=== PATIENT | male | born 1965 | race Caucasian/White ===

== ENCOUNTER 2022-08-29 11:41 | Emergency (ER) | payer MEDICAID, SELFPAY ==
[2022-08-29 11:46] VITALS: BP 210/142; PULSE 98; RESP 16; TEMP 36.8; O2SAT 97
--- NOTE | 2022-08-29 11:57 | ED_ITS ---
HPI - General Adult General: Chief complaint: General Medical Stated complaint: MHE Time Seen by Provider: 08/29/22 11:51 Source: patient Mode of arrival: ambulatory Limitations: no limitations History of Present Illness: See nursing assessment. Patient states that he is seeking drug treatment program for methamphetamine abuse. Patient states has been using methamphetamine for the past 30 years. He states he used this morning. States he has a past medical history of atrial fibrillation and anxiety. He states he takes no routine medications. States he does smoke cigarettes and uses methamphetamine. Denies alcohol or other drug use. Reportedly he is scheduled to go to skilled nursing on Tuesday if he is not in a drug treatment program. Patient denies any chest pain or shortness of breath. He denies any other problems. Associated symptoms: Deny chest pain, dyspnea, headache(s), nausea, rash, palpitations or vomiting Review of Systems Const: Denies: fever(s) or chills Eyes: Denies: change in vision ENMT: Denies: throat pain Card: Denies: chest pain or palpitations Resp: Denies: dyspnea or wheezing GI: Denies: abdominal pain, nausea or vomiting : Denies: flank pain Musc: Denies: neck pain or back pain Skin/Breast: Denies: rash or pruritus Neuro: Denies: headache(s) or numbness in extremities Psych: Reports: anxiety; Denies: depression Fabricio/Lymph: Denies: enlarged lymph nodes PFSH ED Supplemental PFS Information: See history above Physical Exam Const: COMMON NORMALS: no acute distress, patient oriented x3, no limitations and well nourished GENERAL APPEARANCE: cooperative HENMT: COMMON NORMALS: normocephalic and atraumatic HEAD & SCALP: nor mocephalic and atraumatic FACE & SINUS: normal facial exam Eye: COMMON NORMALS: EOMs intact bilaterally Neck/C-Spine: COMMON NORMALS: full ROM, no lymphadenopathy, supple and no meningeal signs GENERAL: Yes normal visual inspection Lymph: LYMPHATIC: no lymphadenopathy noted Chest: COMMONS NORMALS: normal inspection of the chest and normal palpation of entire chest wall CHEST: No Ecchymosis present and No rash Resp: COMMON NORMALS: normal respiratory effort, No retractions and clear to auscultation bilaterally EFFORT & INSPECTION: No respiratory distress AUSCULTATION: clear to auscultation bilaterally Cardio: COMMON NORMALS: regular rate, regular rhythm and Peripheral pulses 2+ throughout JUGULAR VENOUS DISTENTION: no JVD RATE: regular rate RHYTHM: regular rhythm PERIPHERAL PULSES: Peripheral pulses 2+ throughout GI: COMMON NORMALS: Normal to inspection, nondistended, normoactive bowel sounds present and non-tender : COMMON NORMALS: Yes no CVA tenderness BLADDER/KIDNEY EXAM: Yes no CVA tenderness Back/Pelvis: COMMON NORMALS: no CVA tenderness Extremity: COMMON NORMALS: normal to inspection, full ROM and capillary refill normal Neuro: COMMON NORMALS: patient oriented x3, CN's II-XII intact bilaterally, no focal motor deficits and no sensory deficits noted MENINGEAL SIGNS: Yes no meningeal signs Psych: COMMON NORMALS: mental status grossly normal and Normal thought process present THOUGHT PROCESS: Normal thought process present Skin: COMMON NORMALS: no rashes or lesions noted and no wounds GENERAL SKIN EXAM: no rashes or lesions noted Course Vital Signs: Vital signs: Vital Signs Temperature 98.2 F 08/29/22 11:46 Pulse Rate 98 08/29/22 11:46 Respiratory Rate 16 08/29/22 11:46 Blood Pressure 218/147 08/29/22 12:09 Pulse Oximetry 97 08/29/22 11:46 MDM - General Adult Medical Decision Making Methamphetamine abuse; patient used meth amphetamine this morning already. Spoke with nursing personnel. No drug treatment programs available on the weekend. There is a drug treatment program in [facility] called [facility] that patient will have to arrange treatment by himself. 1210: Blood pressure still high at 218/147. Will treat with IV antihypertensive medication. 1225: Nurse stated patient refused IV stick. He did refuse lab draw. I went and discussed with the patient that his blood pressure is dangerously high. He requires IV antihypertensive medication to help prevent stroke or heart attack. Patient states he does not care and he refuses IV. He is open to getting oral medication. I stated this would be insufficient, but since he refuses IV this is the only option we have at this point. EKG Data EKG 1: I personally reviewed and interpreted this EKG as follows: EKG interpretation date: 08/29/22 EKG interpretation time: 12:03 Prior EKG tracings: not available for review Interpretation: Impression sinus tachycardia with LVH. Heart rate 93. [place]. Normal [place] interval, normal QT interval. Normal P waves, normal T waves. Normal ST segment. Discharge Plan Discharge Patient Disposition: Home Clinical Impression: Hypertensive urgency, Methamphetamine addiction Condition: Stable Prescriptions: New labetalol 200 mg tablet 200 mg PO Q12H Qty: 60 1RF Rx Instructions: For hypertension Discharge Orders: Discharge ED (Routine); Ordered 08/29/22 Ordered By: Jaswant Maya Discharge Diet: Cardiac and Low Salt Patient Instructions: Methamphetamine Use Disorder (ED), DASH Eating Plan (ED), Hypertension (ED) Activity Restrictions/Additional Instructions: Follow-up with [facility] tomorrow by calling [phone] to set up an appointment for drug rehab. You have chosen to leave the hospital before being treated with IV antihypertensive medication for your uncontrolled blood pressure. Start taking labetalol by mouth in approximately 12 hours. Avoid methamphetamine. Avoid caffeine or any other stimulants or added salt to your diet. Coding Level of Care Code ED Technical Spec for Manny Esposito History Comprehensive Exam Comprehensive Medical Decision Making Moderate Complexity
--- NOTE | 2022-08-29 12:01 | ECG_ITS ---
[facility] Test Date: 2022-08-29 Pat Name: Daysi Mejía Department: Room: Gender: Male Family Practice Physician: : [id number] Requested By: Jaswant Garay Order Number: [id number] Harshil MD: Allan Lemos M.D. Measurements Intervals Jansen Rate: 93 P: 44 [place]: 145 QRS: 11 QRSD: 96 T: 66 QT: 339 QTc: 422 Interpretive Statements SINUS RHYTHM POSSIBLE LEFT ATRIAL ENLARGEMENT [-0.1mV P-WAVE IN V1/V2] LEFT VENTRICULAR HYPERTROPHY AND ST-T CHANGE [VOLTAGE CRITERIA PLUS ST/T ABNORMALITY] No previous ECG available for comparison Electronically Signed On 08-29-2022 16:03:27 CHAIRMAN PRESIDENT AND CHIEF EXECUTIVE OFFICER by Allan Lemos M.D. [id number]
[2022-08-29 12:08] VITALS: BP 211/134
[2022-08-29 12:09] VITALS: BP 218/147
[2022-08-29] MEDS: labetalol 200 mg Tablet PO (12:35)
== END 2022-08-29 12:37 | disposition home or self-care (01) ==
PROVIDERS: Emergency Provider Family Medicine
DX: F15.20 Other stimulant dependence, uncomplicated (principal); I16.0 Hypertensive urgency
CPT/HCPCS: 93005; 99284

== ENCOUNTER 2022-08-29 13:09 | Emergency (ER) | payer MEDICAID, SELFPAY ==
[2022-08-29 13:35] VITALS: BP 175/137; PULSE 83; RESP 16; TEMP 37.1; O2SAT 97
--- NOTE | 2022-08-29 13:57 | ED.C_ITS ---
HPI - Psych General: Chief Complaint: Psychiatric Symptoms Stated Complaint: MHE Time Seen by Provider: 08/29/22 13:42 Source: patient and family Mode of arrival: ambulatory Limitations: no limitations History of Present Illness: See nursing assessment. Patient presents again to the emergency room after being seen earlier today for methamphetamine abuse. Patient scheduled to go to skilled nursing in 2 to 3 days and was told that he had to seek drug treatment program or he would go to skilled nursing. Family reportedly filled out an affidavit saying that he was anxious and threatened to hurt himself. Patient initially denied being suicidal. He then changed his mind and stated that he may have a plan to hurt himself. He denies any specific plan. See previous ER chart. Patient with history of methamphetamine abuse for over 30 years. He states he used methamphetamine earlier today. His initial blood pressure earlier was high. He was treated with oral labetalol after refused IV and lab work. Associated symptoms: Reports depression; Deny homicidal ideation or suicidal ideation Review of Systems Const: Denies: fever(s) or chills Eyes: Denies: change in vision ENMT: Denies: throat pain Card: Denies: chest pain or palpitations Resp: Denies: dyspnea or wheezing GI: Denies: abdominal pain, nausea or vomiting : Denies: flank pain Musc: Denies: neck pain or back pain Skin/Breast: Denies: rash or pruritus Neuro: Denies: headache(s) or numbness in extremities Psych: Reports: depression and other (Feels like he might harm himself. Denies being suicidal now.); Denies: anxiety, suicidal ideation or homicidal ideation Fabricio/Lymph: Denies: enlarged lymph nodes PFSH ED Supplemental PFSH Information: Methamphetamine abuse Physical Exam Const: COMMON NORMALS: no acute distress, patient oriented x3, no limitations and well nourished GENERAL APPEARANCE: cooperative HENMT: COMMON NORMALS: normocephalic and atraumatic HEAD & SCALP: normocephalic and atraumatic FACE & SINUS: normal facial exam Eye: COMMON NORMALS: EOMs intact bilaterally Neck/C-Spine: COMMON NORMALS: full ROM, no lymphadenopathy, supple and no meningeal signs GENERAL: Yes normal visual inspection Lymph: LYMPHATIC: no lymphadenopathy noted Chest: COMMONS NORMALS: normal inspection of the chest and normal palpation of entire chest wall CHEST: No Ecchymosis present and No rash Resp: COMMON NORMALS: normal respiratory effort, No retractions and clear to auscultation bilaterally EFFORT & INSPECTION: No respiratory distress AUSCULTATION: clear to auscultation bilaterally Cardio: COMMON NORMALS: regular rate, regular rhythm and Peripheral pulses 2+ throughout JUGULAR VENOUS DISTENTION: no JVD RATE: regular rate RHYTHM: regular rhythm PERIPHERAL PULSES: Peripheral pulses 2+ throughout GI: COMMON NORMALS: Normal to inspection, nondistended, normoactive bowel sounds present and non-tender : COMMON NORMALS: Yes no CVA tenderness BLADDER/KIDNEY EXAM: Yes no CVA tenderness Back/Pelvis: COMMON NORMALS: no CVA tenderness Extremity: COMMON NORMALS: normal to inspection, full ROM and capillary refill normal Neuro: COMMON NORMALS: patient oriented x3, CN's II-XII intact bilaterally, no focal motor deficits and no sensory deficits noted MENINGEAL SIGNS: Yes no meningeal signs Psych: COMMON NORMALS: mental status grossly normal and Normal thought process present THOUGHT PROCESS: Normal thought process present OTHER: Patient denies being suicidal but states he has thoughts of harming himself. Patient appears no distress. He is not anxious. No hallucinations. No psychos is. Skin: COMMON NORMALS: no rashes or lesions noted and no wounds GENERAL SKIN EXAM: no rashes or lesions noted Course Vital Signs: Vital signs: Vital Signs Temperature 98.7 F 08/29/22 13:35 Pulse Rate 83 08/29/22 13:35 Respiratory Rate 16 08/29/22 13:35 Blood Pressure 149/97 08/29/22 16:03 Pulse Oximetry 97 08/29/22 13:35 MDM - Psych Medical Decision Making Chronic methamphetamine abuse. Patient states he has thoughts of harming himself now. Patient is wanting to get into a drug rehab rehab and feels this is the best way to get in drug rehab. 1604: bp 149/97 1732: Discussed with psychiatrist Dr. Shrestha. He will call back after he determines bed availability on [facility]. 1806: Patient states he now wants to leave. He states is not suicidal. See statements above. I do not believe he was ever suicidal but was trying to get admitted so he did not go to skilled nursing. I do not have a problem letting the patient go home. Lab Data 08/29/22 14:41 08/29/22 14:41 Laboratory Results WBC 11.6 10^3/uL (4.0-10.0) H 08/29/22 14:41 RBC 4.80 10^6/uL (4.1-5.3) 08/29/22 14:41 Hgb 14.4 g/dL (11.7-16.6) 08/29/22 14:41 Hct 44.4 % (42.0-52.0) 08/29/22 14:41 MCV 92.5 fl (80-94) 08/29/22 14:41 MCH 30.0 pg (28.0-34.0) 08/29/22 14:41 MCHC 32.4 g/dL (30.0-36.0) 08/29/22 14:41 RDW 11.9 % (12.1-15.1) L 08/29/22 14:41 Plt Count 253 10^3/cmm (130-400) 08/29/22 14:41 MPV 9.4 fL (7.4-10.4) 08/29/22 14:41 Neut % (Auto) 76.4 % 08/29/22 14:41 Lymph % (Auto) 14.7 % 08/29/22 14:41 [place] % (Auto) 6.3 % 08/29/22 14:41 Eos % (Auto) 1.7 % 08/29/22 14:41 Baso % (Auto) 0.6 % 08/29/22 14:41 Neut # (Auto) 8.87 10^3/uL (1.8-7.7) H 08/29/22 14:41 Lymph # (Auto) 1.7 10^3/uL (0.8-4.8) 08/29/22 14:41 [place] # (Auto) 0.7 10^3/uL (0.2-0.9) 08/29/22 14:41 Eos # (Auto) 0.2 10^3/uL (0.0-0.8) 08/29/22 14:41 Baso # (Auto) 0.1 10^3/uL (0.0-0.1) 08/29/22 14:41 Nucleated RBC % (auto) 0 % 08/29/22 14:41 Nucleated RBCs # 0.0 /100WBC 08/29/22 14:41 Sodium 135 mmol/L (136-145) L 08/29/22 14:41 Potassium 4.1 mmol/L (3.5-5.1) 08/29/22 14:41 Chloride 100 mmol/L (98-107) 08/29/22 14:41 Carbon Dioxide 28 mmol/L (22-29) 08/29/22 14:41 Anion Gap 11.1 (5-19) 08/29/22 14:41 BUN 16 mg/dL (6-20) 08/29/22 14:41 Creatinine 0.9 mg/dL (0.7-1.2) 08/29/22 14:41 GFR Calculation 87.9 mL/min (90-130) L 08/29/22 14:41 Glucose 113 mg/dL (65-115) 08/29/22 14:41 Calculated Osmolality 282 mOsm/kg (285-295) L 08/29/22 14:41 Calcium 9.5 mg/dL (8.5-10.5) 08/29/22 14:41 Total Bilirubin 0.2 mg/dL (0.15-1.2) 08/29/22 14:41 AST 21 U/L (0-40) 08/29/22 14:41 ALT 35 U/L (0-41) 08/29/22 14:41 Alkaline Phosphatase 107 U/L (40-130) 08/29/22 14:41 Total Protein 6.7 g/dL (6.6-8.7) 08/29/22 14:41 Albumin 4.1 g/dL (3.5-5.2) 08/29/22 14:41 Globulin 2.6 g/dL (1.3-4.6) 08/29/22 14:41 TSH 2.84 uIU/mL (0.27-4.20) 08/29/22 14:41 Urine Color Yellow (Yellow) 08/29/22 14:20 Urine Appearance Clear (CLEAR) 08/29/22 14:20 Urine pH 5 (5-7) 08/29/22 14:20 Ur Specific [place] 1.020 (1.005-1.030) 08/29/22 14:20 Urine Protein Neg (Negative) 08/29/22 14:20 Urine Glucose (UA) Norm (Normal) 08/29/22 14:20 Urine Ketones Negative (Negative) 08/29/22 14:20 Urine Blood Neg (Negative) 08/29/22 14:20 Urine Nitrate Negative (Negative) 08/29/22 14:20 Urine Bilirubin Neg (Negative) 08/29/22 14:20 Urine Urobilinogen Norm mg/dL (Negative) 08/29/22 14:20 Ur Leukocyte Esterase Negative (Negative) 08/29/22 14:20 Salicylates < 0.3 mg/dL (3-10) L 08/29/22 14:41 Urine Opiates Screen Negative ng/mL (Negative) 08/29/22 14:20 Acetaminophen < 5.0 ug/mL (10-30) L 08/29/22 14:41 Ur Barbiturates Screen Negative ng/mL (Negative) 08/29/22 14:20 Ur Phencyclidine Scrn Negative ng/mL (Negative) 08/29/22 14:20 Ur Amphetamines Screen Positive ng/mL (Negative) H 08/29/22 14:20 U Benzodiazepines Scrn Negative ng/mL (Negative) 08/29/22 14:20 Urine Cocaine Screen Negative ng/mL (Negative) 08/29/22 14:20 U Marijuana (THC) Screen Negative ng/mL (Negative) 08/29/22 14:20 Ethyl Alcohol < 10 mg/dL (0-10) 08/29/22 14:41 EKG Data EKG 1: I personally reviewed and interpreted this EKG as follows: EKG interpretation date: 08/29/22 EKG interpretation time: 12:03 Interpretation: Normal sinus rhythm heart rate 93. LVH. Normal P waves, normal T waves, normal [place] interval, normal QT interval. Normal ST segment. Discharge Plan Discharge Patient Disposition: Home Clinical Impression: Methamphetamine addiction, Hypertensive urgency Depression Qualifiers: Depression Type: reactive depression Qualified Code(s): F32.9 - Major depressive disorder, single episode, unspecified Condition: Stable Prescriptions: No Action No Known Home Medications Discharge Orders: Discharge ED (Routine); Ordered 08/29/22 Ordered By: Jaswant Maya Discharge Diet: Cardiac and Low Salt Patient Instructions: Depression (ED), Methamphetamine Use Disorder (ED) Activity Restrictions/Additional Instructions: Follow instructions from last discharge earlier today. Take blood pressure medications as prescribed. Follow-up with drug treatment center tomorrow as previously instructed. Coding Level of Care Code ED Veneer Manufacturer for Manny Esposito History Comprehensive Exam Comprehensive Medical Decision Making Moderate Complexity
[2022-08-29] MEDS: hyDRALAzine 25 mg Tablet PO (14:27)
[2022-08-29 14:34] LABS: Add Urine Microscopic? NO; Charge for UA Resulting for Rev
[2022-08-29 14:38] LABS: Bilirubin Urine Neg (Negative); Blood Urine Neg (Negative); Glucose Urine UA Norm (Normal); Ketones Urine Negative (Negative); Leukocyte Esterase Urine Negative (Negative); Nitrate Urine Negative (Negative); Protein Urine Neg (Negative); Urine Appearance Clear (CLEAR); Urine Color Yellow (Yellow); Urobilinogen Urine Norm (Negative); pH Urine 5 (5-7)
[2022-08-29 14:54] LABS: Amphetamines Screen Urine Positive (Negative); Barbiturates Screen Urine Negative (Negative); Benzodiazepines Screen Urine Negative (Negative); Cocaine Screen Urine Negative (Negative); Opiate Screen Urine Negative (Negative); PCP Screen Urine Negative (Negative); THC Screen Urine Negative (Negative)
[2022-08-29 15:03] LABS: Basophils # 0.1 10^3/uL (0.0-0.1); Basophils % 0.6 %; Eosinophils # 0.2 10^3/uL (0.0-0.8); Eosinophils % 1.7 %; Hematocrit 44.4 % (42.0-52.0); Hemoglobin 14.4 g/dL (11.7-16.6); Lymphocytes # 1.7 10^3/uL (0.8-4.8); Lymphocytes % 14.7 %; Mean Corpuscular HGB Conc 32.4 g/dL (30.0-36.0); Mean Corpuscular Volume 92.5 fl (80-94); Mean Platelet Volume 9.4 fL (7.4-10.4); Monocytes # 0.7 10^3/uL (0.2-0.9); Monocytes % 6.3 %; Neutrophils # 8.87 10^3/uL (1.8-7.7); Neutrophils % 76.4 %; Nucleated Red Blood Cells % 0 %; Platelet Count 253 10^3/cmm (130-400); Red Cell Distribution Width 11.9 % (12.1-15.1); White Blood Count 11.6 10^3/uL (4.0-10.0)
[2022-08-29 15:46] LABS: Alanine Aminotransferase 35 U/L (0-41); Albumin Level 4.1 g/dL (3.5-5.2); Alkaline Phosphatase 107 U/L (40-130); Anion Gap 11.1 (5-19); Aspartate Amino Transferase 21 U/L (0-40); Blood Urea Nitrogen 16 mg/dL (6-20); Calcium 9.5 mg/dL (8.5-10.5); Carbon Dioxide 28 mmol/L (22-29); Chloride 100 mmol/L (98-107); Globulin 2.6 g/dL (1.3-4.6); Glomerular Filtration Rate 87.9 mL/min (90-130); Glucose 113 mg/dL (65-115); Osmolality Calculated 282 mOsm/kg (285-295); Potassium 4.1 mmol/L (3.5-5.1); Sodium 135 mmol/L (136-145); Thyroid Stimulating Hormone 2.84 uIU/mL (0.27-4.20); Total Bilirubin 0.2 mg/dL (0.15-1.2); Total Protein 6.7 g/dL (6.6-8.7)
[2022-08-29 15:55] LABS: Acetaminophen < 5.0 ug/mL (10-30); Alcohol Level < 10 mg/dL (0-10); Salicylate < 0.3 mg/dL (3-10)
[2022-08-29 16:03] VITALS: BP 149/97
[2022-08-29 18:21] VITALS: BP 171/114; PULSE 81; RESP 16; O2SAT 93
== END 2022-08-29 18:27 | disposition home or self-care (01) ==
PROVIDERS: Emergency Provider Family Medicine
DX: F15.20 Other stimulant dependence, uncomplicated (principal); F32.9 Major depressive disorder, single episode, unspecified; I16.0 Hypertensive urgency
CPT/HCPCS: 36415; 80053; 80306; 80307; 81003; 84443; 85025; 99284